=== PATIENT | female | born 1955 ===

== ENCOUNTER → 2018-06-19 13:37 | Outpatient (CLI) | payer OTHER ==
[~2018-06-19 13:37] MED LIST: ENALAPRIL MALEA10 MG PO; VERAPAMIL ER240 MG PO
== END | disposition home or self-care (01) ==
LOC: EKG 13:37
DX: Z00.8 Encounter for other general examination (principal); Z01.810 Encounter for preprocedural cardiovascular examination

== ENCOUNTER 2018-06-28 05:30 | Inpatient (IN) | payer OTHER ==
[~2018-06-28] VITALS: Ht 162.6 cm; Wt 60.8 kg
== END 2018-06-29 11:51 | DRG 744 ==
LOC: CIR.AMB 05:30 → O/R 09:15 → OB/GYN 10:42 → CIR.AMB 14:04 → OB/GYN 06-29 11:51
PROVIDERS: Obstetrics & Gynecology
PROC: 0UDB8ZX Extraction of Endometrium, Via Natural or Artificial Opening Endoscopic, Diagnostic (ICD-10-PCS; principal; 2018-06-28 08:30)
DX: N95.0 Postmenopausal bleeding (principal); N99.71 Accidental puncture and laceration of a genitourinary system organ or structure during a genitourinary system procedure; D25.0 Submucous leiomyoma of uterus